=== PATIENT | female | born 1990 | race American Indian/Alaskan Native ===

== ENCOUNTER 2018-08-04 04:43 | Emergency (ER) | payer MEDICAID, OTHER ==
--- NOTE | 2018-08-04 04:51 | C.PDOC ---
History Of Present Illness 27 year old female , G 6 P 1, currently presents to the ED c/o nausea and vomiting. Patient's LMP was in June. Patient denies fever, chills, diarrhea, vaginal bleeding, vaginal discharge, recent travel, sick contacts. Time Seen by Provider: 08/04/18 04:51 Chief Complaint (Nursing): Abdominal Pain History Per: Patient History/Exam Limitations: no limitations Onset/Duration Of Symptoms: Days Current Symptoms Are (Timing): Still Present Location Of Pain/Discomfort: Diffuse Quality Of Discomfort: "Pain" Associated Symptoms: Nausea, Vomiting. denies: Diarrhea, Urinary Symptoms Recent travel outside of the [place]: No Additional History Per: Patient Abnormal Vaginal Bleeding: No Last Menstral Period: June : 6 Para: 1 Miscarriage: 5 Past Medical History Reviewed: Historical Data, Nursing Documentation, Vital Signs - Medical History PMH: No Chronic Diseases Surgical History: No Surg Hx - [facility] INJECT/INFUSE ELECTROLYT (10/27/14) INJECT/INFUSE NEC (12/01/14) Family History: States: Unknown Family Hx - Social History Hx Alcohol Use: Yes Hx Substance Use: Yes (marijuana) Review Of Systems Constitutional: Negative for: Fever, Chills Cardiovascular: Negative for: Chest Pain Respiratory: Negative for: Cough, Shortness of Breath Gastrointestinal: Positive for: Nausea, Vomiting, Abdominal Pain. Negative for: Diarrhea Genitourinary: Negative for: Dysuria, Hematuria, Vaginal Discharge, Vaginal Bleeding Musculoskeletal: Negative for: Back Pain Skin: Negative for: Rash Physical Exam - Physical Exam Appears: Non-toxic, No Acute Distress Skin: Warm, Dry Head: Normacephalic Eye(s): bilateral: Normal Inspection Oral Mucosa: Moist Neck: Supple Chest: Symmetrical Cardiovascular: Rhythm Regular Respiratory: No Rales, No Rhonchi, No Wheezing Gastrointestinal/Abdominal: Soft, No Tenderness, No Guarding, No Rebound Extremity: Bilateral: Atraumatic, Normal Color And Temperature, Normal ROM Neurological/Psych: Oriented x3, Normal Speech, Normal Cognition Gait: Steady ED Course And Treatment - Laboratory Results Result Diagrams: 08/04/18 05:05 08/04/18 05:05 Pulse Ox Interpretation: Normal Progress Note: Plan: - Labs. - Pepcid 20 mg IVP. - IV fluids. - Zofran 4 mg IVP. - UA. pt started to have some vaginal bleeding. She states that that's how she has miscarriages. 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 I have reviewed the chart and agree that the record accurately reflects my personal performance of the history, physical exam, medical decision making, and the department course for this patient. I have also personally directed, reviewed, and agree with the discharge instructions and disposition. Physician Patient Turnover Patient Signed Over To: Safia Erickson Handoff Comments: pending US and disposition
[2018-08-04 04:55] VITALS: BMI 27.6
[2018-08-04] MEDS ORDERED: Sodium Chloride 0.9% 1,000 ML IV ONE (04:55)
[2018-08-04 05:08] LABS: BASO % 0.7 % (0.0-2.0); EOS # 0.1 K/uL (0.0-0.7); EOS % 1.3 % (0.0-4.0); HEMOGLOBIN 11.2 g/dL (11.0-16.0); LYMPH # 1.8 K/uL (1.0-4.3); LYMPH % 30.9 % (20.0-40.0); MEAN CELL VOLUME 71.6 fL (81.0-99.0); MEAN CORPUSCULAR HEMOGLOBIN 22.4 pg (27.0-31.0); MEAN CORPUSCULAR HGB CONC 31.3 g/dL (33.0-37.0); MEAN PLATELET VOLUME 7.4 fL (7.2-11.7); MONO # 0.3 K/uL (0.0-0.8); MONO % 4.5 % (0.0-10.0); NEUT # 3.7 K/uL (1.8-7.0); NEUT % 62.6 % (50.0-75.0); NRBC % 0.1 % (0.0-2.0); RED CELL DISTRIBUTION WIDTH 17.7 % (11.5-14.5); WHITE BLOOD COUNT 5.9 K/uL (4.8-10.8)
[2018-08-04] MEDS ORDERED: Sodium Chloride 0.9% 250 ML IV ONE (05:14)
[2018-08-04 05:18] LABS: INR 1.1; PROTHROMBIN TIME 12.3 SECONDS (9.7-12.2)
[2018-08-04 05:20] LABS: SQUAMOUS EPITHIAL 54 /hpf (0-5); URINE BILIRUBIN NEGATIVE (NEGATIVE); URINE BLOOD NEGATIVE (NEGATIVE); URINE CLARITY Hazy (Clear); URINE COLOR Yellow (YELLOW); URINE GLUCOSE (UA) NORMAL (Normal); URINE LEUKOCYTE ESTERASE TRACE Leu/uL (Negative); URINE PROTEIN 3+ mg/dL (NEGATIVE); URINE TRIPLE PHOSPHATE CRYSTAL OCC /hpf (<OCC); URINE UROBILINOGEN NORMAL mg/dL (0.2-1.0)
[2018-08-04 05:24] LABS: ALB/GLOB RATIO 1.7 (1.0-2.1); ALBUMIN 4.8 g/dL (3.5-5.0); ALT/SGPT 21 U/L (9-52); AST/SGOT 15 U/L (14-36); BLOOD UREA NITROGEN 10 mg/dL (7-17); CALCIUM 9.2 mg/dl (8.6-10.4); GFR NON-AFRICAN AMERICAN > 60; LIPASE 39 U/L (23-300)
[2018-08-04 06:27] VITALS: O2SAT 100
--- NOTE | 2018-08-04 07:23 | CP.PCM.CON ---
History of Present Illness - History of Present Illness History of Present Illness: 27 yo female and presented to ER with c/o of N&V and early . While in the ER she started cramping and vaginal bleeding and I was called to see patient because of Heavy Bleeding. [facility] [place]. Review of Systems - Constitutional Constitutional: As Per HPI - Reproductive: Female Additional comments: Hx of regular menses, LMP 06/11/18 so about 7-8 weeks Hx of 5 losses at 4-5 months and told that she has Incompetent cervix, per patient - Menstruation Additional comments: See Reproductive female note Past Patient History - Infectious Disease Hx of Infectious Diseases: None - Tetanus Immunizations Tetanus Immunization: Unknown - Past Medical History & Family History Past Medical History?: Yes - Past Social History Smoking Status: Smoker Currrent Status Unknown Chewing Tobacco Use: No Cigar Use: No Alcohol: > 2 Drinks/Day Drugs: Cannabis Home Situation {Lives}: With Family Domestic Violence: Negative - CARDIAC Hx Cardiac Disorders: No - PULMONARY Hx Respiratory Disorders: No - NEUROLOGICAL Hx Neurological Disorder: No - HEENT Hx HEENT Problems: No - RENAL Hx Chronic Kidney Disease: No - ENDOCRINE/METABOLIC Hx Endocrine Disorders: No - HEMATOLOGICAL/ONCOLOGICAL Hx Blood Disorders: No - INTEGUMENTARY Hx Dermatological Problems: No - MUSCULOSKELETAL/RHEUMATOLOGICAL Hx Musculoskeletal Disorders: No - GENITOURINARY/GYNECOLOGICAL Hx Reproductive Disorders: Yes (Hx of Incompetent cervix) LMP:: 06/11/18 : 7 Para: 1 (5 losses 4-5 mos) - PSYCHIATRIC Hx Substance Use: Yes (marijuana) - SURGICAL HISTORY Hx Dilation and Curettage: Yes Hx Musculoskeletal Surgery: Yes (left shoulder) - ANESTHESIA Hx Anesthesia: Yes Hx Anesthesia Reactions: No Hx Malignant Hyperthermia: No Meds Allergies/Adverse Reactions: Allergies Allergy/AdvReac Type Severity Reaction Status Date / Time chocolate flavor Allergy Mild Verified 08/04/18 04:58 Physical Exam - Constitutional Appears: No Acute Distress - Head Exam Head Exam: NORMAL INSPECTION - Respiratory Exam Respiratory Exam: NORMAL BREATHING PATTERN - Cardiovascular Exam Cardiovascular Exam: REGULAR RHYTHM - GI/Abdominal Exam GI & Abdominal Exam: Normal Bowel Sounds - Rectal Exam Rectal Exam: NORMAL INSPECTION - Exam External exam: NORMAL EXTERNAL EXAM Speculum exam: NORMAL SPECULUM EXAM Bimanual exam: Uterine Enlargement (7-8 weeks size uterus) - Neurological Exam Neurological exam: Alert, Oriented x3 - Skin Skin Exam: Normal Color, Warm Results - Vital Signs Recent Vital Signs: Last Vital Signs Temp 99 F 08/04/18 05:07 Pulse 64 08/04/18 06:26 Resp 18 08/04/18 06:26 BP 126/58 L 08/04/18 06:26 Pulse Ox 100 08/04/18 06:26 - Labs Result Diagrams: 08/04/18 05:05 08/04/18 05:05 Labs: Laboratory Results - last 24 hr 08/04/18 08/04/18 08/04/18 05:05 05:05 05:05 WBC 5.9 RBC 5.00 Hgb 11.2 Hct 35.8 MCV 71.6 L MCH 22.4 L MCHC 31.3 L RDW 17.7 H Plt Count 393 MPV 7.4 Neut % (Auto) 62.6 Lymph % (Auto) 30.9 Bureau % (Auto) 4.5 Eos % (Auto) 1.3 Baso % (Auto) 0.7 Neut # (Auto) 3.7 Lymph # (Auto) 1.8 Bureau # (Auto) 0.3 Eos # (Auto) 0.1 Baso # (Auto) 0.0 PT 12.3 H INR 1.1 APTT 35 H Sodium Potassium Chloride Carbon Dioxide Anion Gap BUN Creatinine Est GFR ( Amer) Est GFR (Non-Af Amer) Random Glucose Calcium Total Bilirubin AST ALT Alkaline Phosphatase Total Protein Albumin Globulin Albumin/Globulin Ratio Lipase Beta HCG, Quant Urine Color Yellow Urine Clarity Hazy Urine pH 8.0 Ur Specific [place] 1.032 H Urine Protein 3+ H Urine Glucose (UA) Normal Urine Ketones Trace Urine Blood Negative Urine Nitrate Negative Urine Bilirubin Negative Urine Urobilinogen Normal Ur Leukocyte Esterase Trace Urine WBC (Auto) 4 Ur Squamous Epith Cells 54 H Triple Phos Crystals Occ H Urine Yeast (Budding) Many H Blood Type Antibody Screen 08/04/18 08/04/18 08/04/18 05:05 05:05 05:15 WBC RBC Hgb Hct MCV MCH MCHC RDW Plt Count MPV Neut % (Auto) Lymph % (Auto) Bureau % (Auto) Eos % (Auto) Baso % (Auto) Neut # (Auto) Lymph # (Auto) Bureau # (Auto) Eos # (Auto) Baso # (Auto) PT INR APTT Sodium 137 Potassium 3.7 Chloride 102 Carbon Dioxide 22 Anion Gap 17 BUN 10 Creatinine 0.6 L Est GFR ( Amer) > 60 Est GFR (Non-Af Amer) > 60 Random Glucose 121 H Calcium 9.2 Total Bilirubin 1.0 AST 15 ALT 21 Alkaline Phosphatase 58 Total Protein 7.6 Albumin 4.8 Globulin 2.8 Albumin/Globulin Ratio 1.7 Lipase 39 Beta HCG, Quant 65866.00 Urine Color Urine Clarity Urine pH Ur Specific [place] Urine Protein Urine Glucose (UA) Urine Ketones Urine Blood Urine Nitrate Urine Bilirubin Urine Urobilinogen Ur Leukocyte Esterase Urine WBC (Auto) Ur Squamous Epith Cells Triple Phos Crystals Urine Yeast (Budding) Blood Type A POSITIVE Antibody Screen Negative Assessment & Plan - Assessment and Plan (Free Text) Assessment: Threatened Miscarriage Stable No active bleeding at time of exam with cx closed Hx of Incompetent cervix Awaiting US to further assess status Plan: Awaiting for US results to further assess status Case discussed with ER Physician and Dr. Butt, BALLISTIC TECHNICIAN Hospitalist cold roll packer sheet iron for today - Date & Time Date: 08/04/18 Time: 06:30
[2018-08-04 07:41] VITALS: BP 115/70; PULSE 54; RESP 16; TEMP 98.3
--- NOTE | 2018-08-04 08:35 | US ---
Date of service: 08/04/2018 PROCEDURE: OB Pelvic Ultrasound HISTORY: vag bleed LMP 06/15/2018 COMPARISON: None available. FINDINGS: UTERUS: Gestational sac: Single intrauterine gestation. Mean sac diameter 2.31 cm-corresponded 6 weeks 6 days.; The yolk sac present measuring 0.26 cm. Embryonic/ pole [id number] length 0.58 cm corresponding to 6 weeks 3 days. Heart rate: 120 bpm. age (Ultrasound estimated): 6 weeks 5 days +/-0 weeks 3 days Meredith-gestational hemorrhage: Small, elongated perigestational hemorrhage bleed inferior to the sac. No more significant appearing perigestational bleed noted. This elongated flat and perigestational hemorrhage is estimated to be 2.3 cm by 0.5 cm. Date of delivery (Ultrasound estimated) : 03/25/2019 Uterus measures 8.4 x 4.6 x 6.4 cm. Retroverted with fibroids as follows: Pedunculated/subserosal right-sided mid body fibroid 2.1 x 2.0 x 2.3 cm-no decidual/gestational continuity noted. Intramural right-sided mid body partly calcified fibroid 1.4 x 1.1 x 1.0 cm-also no decidual gestational continuity noted. CERVIX: Not well visualized-nevertheless grossly appears closed. Without cervical abnormality noted. RIGHT OVARY: Measures 3.1 x 1.9 x 2.2 cm. No mass lesion. Normal flow. Corpus luteal cyst suggested 2.0 x 1.6 x 1.4 LEFT OVARY: Measures 3.1 x 1.5 x 1.9 cm. No solid mass. Normal flow. FREE FLUID: None. OTHER FINDINGS: None. IMPRESSION: Single intrauterine gestation with cardiac activity whose menstrual age by ultrasound parameters is 6 weeks 5 days +/-0 weeks 3 days. This contrasts with the gestational age by LMP of 7 weeks 1 day. Small Meredith gestational hemorrhage elongated and flat in appearance inferior to the sac. Uterine fibroids as above. No continuity of the fibroids with the gestational sac noted. Right corpus luteal cyst TECHNIQUE: Transvaginal
== END 2018-08-04 09:03 | disposition home or self-care (01) ==
LOC: C.ER 04:43
DX: O20.0 Threatened abortion (principal); Z3A.01 Less than 8 weeks gestation of pregnancy
CPT/HCPCS: 76817; 80053; 81001; 83690; 84702; 85025; 85610; 85730; 86850; 86900; 96374; 96375; 96376; 99285; J2405; J2765; J7030